=== PATIENT | female | born 1960 | race Asian ===

== ENCOUNTER → 2018-05-18 | Outpatient (CLI) | payer BC ==
--- NOTE | 2018-05-31 10:11 | RADIOLOGY IMAGING REPORT ---
FACILITY: [facility] [place] PATIENT NAME: DASHA SOSA : [id number] MR: [id number] V: [id number] EXAM DATE: [id number] ORDERING PHYSICIAN: WILMAR MARCUS TECHNOLOGIST: Samira Barber PROCEDURE:BILATERAL DIGITAL SCREENING MAMMOGRAM WITH CAD ASSISTED INTERPRETATION & 3D TOMOSYNTHESIS Routine MLO & CC views were obtained of both Right & Left breast. COMPARISON:Mammograms 01/26/17 & . INDICATIONS:SCREENING TISSUE: The tissue is heterogeneously dense. FINDINGS: There is no suspicious mass, calcification or architectural distortion. DIAGNOSTIC CATEGORY 2--BENIGN FINDING. RECOMMENDATIONS: ROUTINE YEARLY MAMMOGRAM AND CLINICAL EVALUATION. IMPRESSION: BIRADS 2: Benign finding. No mammographic evidence for malignancy. Dictated by: Ariel Hamlin M.D. on 05/23/2018 at 15:56 Transcribed by: GUY on 05/24/2018 at 8:06 Approved by: Ariel Hamlin M.D. on 05/31/2018 at 10:09 [facility]
== END ==
LOC: MAMO 14:28
PROVIDERS: ATTEND Family Medicine
DX: Z12.31 Encounter for screening mammogram for malignant neoplasm of breast (principal)
CPT/HCPCS: 77063; 77067